=== PATIENT | male | born 1970 | race Caucasian/White ===

== ENCOUNTER 2020-07-04 16:25 | Emergency (ER) | payer BC, SELFPAY ==
[2020-07-04 16:27] VITALS: BP 146/90; PULSE 83; RESP 18; TEMP 36.7; O2SAT 100
[2020-07-04] MEDS: AMOXICILLIN/CLAVULANATE K 875-125 MG TAB 1 TABLET PO (17:43)
[2020-07-04] MEDS: TETANUS/DIPHTHERIA TOXOIDS ADSORB 0.5 ML VIAL (*BKC) IM (17:43)
--- NOTE | 2020-07-04 17:58 | ED.ANIMALBIT ---
HPI - Animal Bite General Chief Complaint: Animal Bite <KIMBERLY Andre Last Filed: 07/04/20 18:05> Stated Complaint: right leg dog bite <KIMBERLY Andre Last Filed: 07/04/20 18:05> Time Seen by Provider: 07/04/20 16:52 <KIMBERLY Andre Last Filed: 07/04/20 18:05> Source: patient <KIMBERLY Andre Last Filed: 07/04/20 18:05> Mode of arrival: ambulatory <KIMBELRY Andre Last Filed: 07/04/20 18:05> Limitations: no limitations <KIMBERLY Andre Last Filed: 07/04/20 18:05> History of Present Illness HPI narrative: This is a 49 year old male that presents to the ER for dog bite to the right thigh sustained yesterday. 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 Reports a dog came out and started barking at him. Reports he turned to try to get away from the dog and the dog bit him on the right thigh. Reports he cleaned the wound with soap and water. Reports he is unsure of his last tetanus vaccine. The theology professor did report that the dog was up-to-date on vaccinations. Denies fever, abnormal drainage or erythema of the wound. <Maria E Carvajal PA-C - Last Filed: 07/04/20 18:05> Related Data Allergies/Adverse Reactions: Allergies Allergy/AdvReac Type Severity Reaction Status Date / Time No Known Allergies Allergy Unknown Verified 09/20/11 16:17 OFF BUG SPRAY Allergy Mild Uncoded 11/01/10 01:36 <KIMBERLY Andre Last Filed: 07/04/20 18:05> Review of Systems Review of Systems: Narrative: CONSTITUTIONAL: Denies fever SKIN: Reports wound <KIMBERLY Andre Last Filed: 07/04/20 18:05> All systems reviewed & are unremarkable except as noted in HPI and below <KIMBERLY Andre Last Filed: 07/04/20 18:05> [facility] Past Medical History Medical History: Medical History (Updated 07/04/20 @ 18:04 by Maria E Carvajal PA-C) No active medical problems <Maria E Carvajal PA-C - Last Filed: 07/04/20 18:05> Social History Social History: Social History (Updated 07/04/20 @ 18:02 by Maria E Carvajal PA-C) Smoking status: Never smoker <Maria E Carvajal PA-C - Last Filed: 07/04/20 18:05> Exam Narrative: Exam Narrative: GENERAL: Well-appearing, well-nourished, and in no acute distress. HEAD: Normocephalic, atraumatic. EYES: EOMI. EXTREMITIES: Normal range of motion. No edema. Right posterior upper thigh with superficial wound with scabbing and bruising, no abnormal drainage or erythema of the wound SKIN: Warm, dry, no rash. NEURO: No focal deficits. Alert and oriented x3. PSYCH: Normal mood and affect <Maria E Carvajal PA-C - Last Filed: 07/04/20 18:05> Course Vital Signs Vital signs: Vital Signs Temperature 98.0 F 07/04/20 16:27 Pulse Rate 83 07/04/20 16:27 Respiratory Rate 18 07/04/20 16:27 Blood Pressure 146/90 H 07/04/20 16:27 Pulse Oximetry 100 07/04/20 16:27 Temperature 98.0 F 07/04/20 16:27 Pulse Rate 70 07/04/20 18:11 Respiratory Rate 18 07/04/20 18:11 Blood Pressure 138/70 07/04/20 18:11 Pulse Oximetry 99 07/04/20 18:11 <Maria E Carvajal PA-C - Last Filed: 07/04/20 18:05> Vital Signs Temperature 98.0 F 07/04/20 16:27 Pulse Rate 83 07/04/20 16:27 Respiratory Rate 18 07/04/20 16:27 Blood Pressure 146/90 H 07/04/20 16:27 Pulse Oximetry 100 07/04/20 16:27 Temperature 98.0 F 07/04/20 16:27 Pulse Rate 70 07/04/20 18:11 Respiratory Rate 18 07/04/20 18:11 Blood Pressure 138/70 07/04/20 18:11 Pulse Oximetry 99 07/04/20 18:11 <Mariola Nguyen MD - Last Filed: 07/04/20 21:38> MDM - Animal Bite MDM Narrative Medical decision making narrative: Patient presents to the emergency department after a dog bite yesterday. He was updated on tetanus. The wound was cleansed and covered with a bandage. Per the theology professor of the dog was up-to-date on its vaccinations. Patient will be started on Augmentin prophylactica
[2020-07-04 18:11] VITALS: BP 138/70; PULSE 70; RESP 18; O2SAT 99
== END 2020-07-04 18:13 | disposition home or self-care (01) ==
PROVIDERS: Emergency Provider General Practice; PCP Family Medicine
DX: S71.151A Open bite, right thigh, initial encounter (principal); W54.0XXA Bitten by dog, initial encounter; Z23 Encounter for immunization
CPT/HCPCS: 90471; 90714; 99283; A9270